=== PATIENT | male | born 1955 | race Caucasian/White ===

== ENCOUNTER → 2017-09-27 | Outpatient (CLI) | payer BC ==
[~2017-09-27] MED LIST: ACID REDUCER 1150 MG PO; ASPI81EC PO; CIPRSO LEFTEYE; CRUTCH USE; ERGO400 PO; FISH1000 PO; IBUP800 PO; LISI5; LISI5 PO; MULVITA PO; MULVITMIND PO; OXYACE5T PO; SERT50; SERT50 PO; Zestril40 MG PO
== END | disposition home or self-care (01) ==
LOC: LAB 09:00
DX: R73.01 Impaired fasting glucose (principal)
CPT/HCPCS: 83036

== ENCOUNTER 2023-11-16 08:58 | Day surgery (SDC) | payer OTHER ==
[~2023-11-16] VITALS: Ht 180.3 cm; Wt 222.2 kg
[2023-11-16] MEDS ORDERED: Lactated Ringer's 1,000 ML IV ONE ×2 (10:32→12:41)
[2023-11-16] MEDS ORDERED: propofoL 50 ML IV ONE (10:35)
[2023-11-16 13:50] VITALS: BP 119/89
== END 2023-11-16 13:47 | disposition home or self-care (01) ==
LOC: ORSCSDS 08:58
PROVIDERS: Surgery
PROC: 0DBN8ZX Excision of Sigmoid Colon, Via Natural or Artificial Opening Endoscopic, Diagnostic (ICD-10-PCS; principal; 2023-11-16 13:00)
PROC: 0DBL8ZX Excision of Transverse Colon, Via Natural or Artificial Opening Endoscopic, Diagnostic (ICD-10-PCS; principal; 2023-11-16 13:00)
DX: Z12.11 Encounter for screening for malignant neoplasm of colon (principal); Z86.010 Personal history of colon polyps; D12.3 Benign neoplasm of transverse colon; D12.5 Benign neoplasm of sigmoid colon; K57.30 Diverticulosis of large intestine without perforation or abscess without bleeding; I10 Essential (primary) hypertension; E78.5 Hyperlipidemia, unspecified; Z79.82 Long term (current) use of aspirin; Z79.899 Other long term (current) drug therapy
CPT/HCPCS: 88305; J2704; J7120

== ENCOUNTER 2025-01-03 04:02 | Day surgery (SDC) | payer OTHER ==
[2025-01-03] MEDS ORDERED: Cosyntropin 0.25 MG / ML 1ML Vial IV SCH (06:35)
[2025-01-03 08:35] VITALS: BP 136/95
== END 2025-01-03 09:45 | disposition home or self-care (01) ==
LOC: ATC 04:02
DX: R42 Dizziness and giddiness (principal); R11.2 Nausea with vomiting, unspecified; I10 Essential (primary) hypertension; E78.5 Hyperlipidemia, unspecified; Z79.82 Long term (current) use of aspirin; Z79.899 Other long term (current) drug therapy
CPT/HCPCS: 80400; 82533; 96374; J0834